=== PATIENT | female | born 1995 | race African-American/Black ===

== ENCOUNTER 2018-01-24 00:41 | Emergency (ER) | payer OTHER, SELFPAY ==
[2018-01-24 01:36] LABS: #Eosinphils 0.3 thou/uL (0.0-0.7); #Monocytes 0.6 thou/uL (0.11-0.59); #Neutrophils 10.1 thou/uL (1.40-6.50); %Basophils 0.1 % (0.0-1.0); %Eosinophils 2.5 % (0.0-10.0); %Lymphocytes 15.3 % (21.0-51.0); %Monocytes 4.6 % (0.0-10.0); %Neutrophils 77.4 % (42.0-75.0); Hemoglobin 13.9 g/dL (12.0-16.0); Mean Corpuscular Hemoglobin 29.9 pg (27.0-31.0); Mean Corpuscular Volume 90.6 fl (81.0-99.0); Mean Platelet Volume 9.2 fL (7.4-10.4); Platelet Count 273 thou/uL (130-400); Red Blood Cell (RBC) Count 4.65 mill/uL (4.20-5.40)
[2018-01-24 01:55] LABS: ALT (SGPT) 28 U/L (8-55); AST (SGOT) 19 U/L (5-34); Albumin 4.5 g/dL (3.5-5.0); Alkaline Phosphatase 74 U/L (40-150); Anion Gap 11 mmol/L (10-20); BUN (Urea Nitrogen) 12 mg/dL (7.0-18.7); Bilirubin, Total 0.2 mg/dL (0.2-1.2); Calc. Creatinine Clearance 0 mL/min (70-130); Calcium 9.4 mg/dL (7.8-10.44); Carbon Dioxide 24 mmol/L (22-29); Chloride 104 mmol/L (98-107); Estimated GFR-MDRD Greater than 90; Globulin 3.2 g/dL (2.4-3.5); Glucose 137 mg/dL (70-105); Potassium 3.6 mmol/L (3.5-5.1); Protein, Total 7.7 g/dL (6.0-8.3); Sodium 135 mmol/L (136-145)
[2018-01-24 01:58] LABS: CKMB 1.3 ng/mL (0-6.6); Troponin I Less than 0.010 ng/mL (< 0.028)
[2018-01-24] MEDS ORDERED: Lidocaine Viscous Sol 2% 15 ml UD Cup ONE (02:01)
[2018-01-24] MEDS ORDERED: Mag-Al 1200 mg/1200 mg/30 ML UDCUP ONE (02:01)
[2018-01-24 02:03] LABS: BHCG - Serum Negative (NEGATIVE); Pregs Control Background? CLEAR/WHITE (CLR/WHITE); Pregs Control Bar Appear? YES (CONTROL BAR)
[2018-01-24] MEDS ORDERED: Ondansetron ODT 8 MG TAB ONE (02:14)
--- NOTE | 2018-01-24 07:48 | RAD ---
AP VIEW CHEST: HISTORY: Upper chest pain. FINDINGS: AP view chest is obtained on 01/24/18. AP view chest demonstrates the lungs to be well aerated. No evidence of active intrathoracic disease is seen. No evidence of effusions, pneumonia, or pneumothorax seen. IMPRESSION: Unremarkable AP view chest. POS: [facility]
--- NOTE | 2018-01-28 15:44 | EKG ---
Test Reason : Blood Pressure : / mmHG Vent. Rate : 064 BPM Atrial Rate : 064 BPM P-R Int : 162 ms QRS Dur : 092 ms QT Int : 438 ms P-R-T Axes : 047 051 034 degrees QTc Int : 451 ms Normal sinus rhythm with sinus arrhythmia Possible Left atrial enlargement Borderline ECG Confirmed by GINGER BARTLETT D.O. ([id number]), art editor OSMAN GROSSMAN ([id number]) on 01/28/2018 3:44:04 PM Referred By: Confirmed By:GINGER BARTLETT D.O.
== END 2018-01-24 03:57 | disposition home or self-care (01) ==
LOC: ERS 00:41
DX: R10.13 Epigastric pain (principal)
CPT/HCPCS: 71045; 80053; 82553; 84484; 84703; 85025; 93005

== ENCOUNTER 2019-05-16 18:48 | Day surgery (SDC) | payer OTHER ==
[2019-05-16 19:49] VITALS: BMI 36.6
[2019-05-17] MEDS ORDERED: Azithromycin 250 MG TAB PO SCH (09:00)
== END 2019-05-16 22:04 | disposition home or self-care (01) ==
LOC: L&D/OP 18:48
PROVIDERS: ATTEND Student in an Organized Health Care Education/Training Program
DX: O99.89 Other specified diseases and conditions complicating pregnancy, childbirth and the puerperium (principal); R25.2 Cramp and spasm; R10.9 Unspecified abdominal pain
CPT/HCPCS: 99281

== ENCOUNTER 2019-06-25 00:08 | Inpatient (IN) | payer OTHER ==
[2019-06-25] MEDS ORDERED: Ondansetron PF 4 MG/2 ML Vial IVP PRN ×3 (00:39→10:49)
[2019-06-25] MEDS ORDERED: hydrALAZINE 20 MG/ML VIAL SLOW IVP PRN ×2 (00:39→10:49)
[2019-06-25] MEDS ORDERED: Promethazine HCl 25 MG/ML VIAL IM PRN ×3 (00:39→10:49)
[2019-06-25 00:57] VITALS: BMI 37.8
[2019-06-25 00:57] LABS: Amnisure Test RUPTURE DETECTED (No Rupture)
[2019-06-25 00:58] LABS: Amnisure Internal Control QC ACCEPTABLE (ACCEPTABLE)
[2019-06-25 00:59] LABS: Hemoglobin 11.8 g/dL (12.0-16.0); Mean Corpuscular Hemoglobin 30.1 pg (27.0-31.0); Mean Corpuscular Volume 85.9 fL (78.0-98.0); Mean Platelet Volume 10.7 fL (7.4-10.4); Platelet Count 176 thou/uL (130-400); Red Blood Cell (RBC) Count 3.92 mill/uL (4.20-5.40); White Blood Cell (WBC) Count 11.9 thou/uL (4.8-10.8)
[2019-06-25] MEDS: Lactated Ringer's 1,000 ML IV SCH ×2 (01:02→04:12)
--- NOTE | 2019-06-25 01:16 | PDOC.LDHP ---
Labor and Delivery H&P Chief complaint: loss of fluid HPI: Mrs. Raphael is a 23 y/o female who presents to the clinic after her "water broke". The patient states that at approximately 11:00 PM on 06/24/19 she felt a gush of clear fluid that did not contain any mucous or blood. She states that her last episode of vaginal intercourse was approximately 6 months ago, and she does not endorse any urinary symptoms at this time. She states that her has been uncomplicated thus far, except for a positive GBS screen on 06/21/19. Her is dated at 39.5W by 33.1W US, and she states that she sees Dr. Abdulkadir Brantley at [facility]. A growth scan performed on 06/21/19 revealed a Hadlock Score of 51.5%, with an estimated weight of 3478 g, an anterior fundal placenta, and a vertex presentation. Per chart review, Mrs. Raphael's has been complicated by 1 episode of Chlamydial/Trichomonal infection that was treated with Azithromycin 500 mg PO BID x1 and confirmed with a test of cure. As of 06/21/19, Mrs. Raphael is negative for HIV, RPR, Gonorrhea, and Chlamydia. Mrs. Raphael states that her previous was uncomplicated, and that her baby was born at 40W without complications. She denies any chest pain, SOB, changes in vision, headaches, abnormal swelling in her extremities, abnormal sensation in her extremities and abnormal vaginal discharge. Current gestational age (weeks): 39 (39.5) Due date: 06/27/19 Dating criteria: other (US performed at 33.1W) Grav: 2 Para: 1 (1001) OB History Details: Current : Growth Scan on 06/21/19 revealed Hadlock 51.5%, estimate weight of 3478 g, anterior fundal placenta, and vertex presentation. GBS+, HIV-, RPR-, GOnorrhea-, Chlamydia-. The patient admits to a previous episode of Chlamydia and Trichomonas earlier in her , both of which were treated by Azithromycin 500 mg PO BID x1 and confirmed -via test of cure. Previous : Born at 40W via following amniotomy. No complaints or complications, per the patient. Current complications: other (Chlamydia / Trichomonas Infection, treated with Azithromycin and confirmed via test of cure.) Abnormal US findings: No Past Medical History: Obesity Current medications: none Previous surgical history: none Allergies/Adverse Reactions: Allergies Allergy/AdvReac Type Severity Reaction Status Date / Time No Known Allergies Allergy Verified 06/25/19 00:55 Social history: none - Physical Exam Vital signs reviewed and normal: yes General: NAD, resting, breathing through contractions Heart: other (2/6 systolic murmur heard throughout the precordium, which the patient states has been present since childhood.) Lungs: nonlabored breathing Abdomen: NTTP Extremeties: trace edema FHT: category 1 [place] contractions every: 3-4 minutes - Vaginal Exam cm dilated: 1 Effacement: 75% Station: -2 - OB Labs Blood type: O RH: positive Antibody Screen: unknown HIV: negative RPR: negative HEPSAg: unknown 1 hour GCT: negative GBS: positive Urine drug screen: negative - Assessment L&D Assessment: term rupture in membranes 23 y/o female at 39.5W confirmed via 33.1W US. 1. TIUP -Begin GBS Prophylaxis -Cervical Checks Q2H -Epidural desired -Consider Pitocin Augmentation if needed 2. GBS+ -Initiate GBS Antibiotic Prophylaxis of Penicillin G 5M U + 2.5M U, administered over 4 hours -Monitor for maternal fever Dispo: Admit to L&D, initiate GBS antibiotic prophylaxis, contact Anesthesia when appropriate, cervical checks Q2H. - Plan Plan: admit to L&D, GBS antibiotic prophylaxis Addendum - Attending - Attending Attestation Date/Time: 06/25/19 0733 I personally evaluated the patient and discussed the management with Dr. Abdullahi I agree with the History, Examination, Assessment and Plan documented above with any addition or exceptions noted below. 23 yo at 39w5d dated by 32 w US presenting for term PROM at 2300 on 06/24 1. GBS Positive-start prophylaxis now 2. Chlamydia x 2, treated with negative FOREIGN in 3rd trimester 3. Borderline BP-in office and here in hospital. Monitor closely. Will send labs if BP persistently >140/90 4. Obesity-BMI is 40 based on measured height of 60 inches in our office. 5. Cat I FHT. Cephalic presentation confirmed by sutures and bedside US. Start pitocin for labor augmentation. Anticipate
[2019-06-25 01:40] LABS: HBSAg Index 0.31 S/CO (0-0.99); Hep B Surf Ag Non-Reactive S/CO (NonReactive); Syphilis Antibody Nonreactive (Nonreactive); Syphilis Antibody Index 0.03 S/CO (<1.00 Non-Reactive)
[2019-06-25] MEDS ORDERED: Lidocaine 1% (PF) 30 ML VIAL SC PRN (01:42)
[2019-06-25] MEDS ORDERED: NS / Oxytocin 40 units/1000ml 1,000 ML IV PRN (01:42)
[2019-06-25] MEDS ORDERED: Penicillin G Potassium 5 MILL.UNITS in Sodium Chloride 0.9% 100 ML IVPB SCH (01:45)
[2019-06-25] MEDS ORDERED: Fentanyl 4 mcg/Bup 0.1% Cadd 100 ML ONE (02:26)
[2019-06-25] MEDS ORDERED: NS w/ Oxytocin 10 units 500 ML IV SCH (02:30)
[2019-06-25] MEDS ORDERED: diphenhydrAMINE 50 MG/ML VIAL IVP PRN (03:53)
[2019-06-25] MEDS ORDERED: ePHEDrine/0.9% NaCl/PF SYRINGE 50 mg/10 ml SLOW IVP PRN (03:53)
[2019-06-25] MEDS ORDERED: Naloxone HCl 0.4 mg/ml Vial IVP PRN ×2 (03:53)
[2019-06-25] MEDS ORDERED: Lactated Ringer's 500 ML IV PRN (03:53)
[2019-06-25] MEDS ORDERED: Fentanyl 4 mcg/Bupivacaine 0.1% Cassette 100 ML EPIDURAL SCH (04:00)
[2019-06-25] MEDS ORDERED: Communication Order-Pharmacy FS SCH (04:00)
--- NOTE | 2019-06-25 06:31 | PDOC.LDPN ---
Labor & Delivery Progress Note - Subjective Subjective: comfortable, loss of fluid (SROM @ 2300 on 06/24. ), no concerns - Objective Vital signs reviewed and normal: yes General: NAD, resting Uterine fundus: non tender SVE: By Nurse Summer Dilation: 3 Effacement: 50% Station: 0 FHT: category 1 (FHT's 130's, no decles, moderate variability. Accels present. ) , variability present [place] contractions every: 4-5 minutes Other exam findings: Epidural in place for pain management. - Assessment (1) Intrauterine Code(s): Z33.1 - STATE, INCIDENTAL Current Visit: No Status: Acute Plan: continue plan of care -: 23 y/o female at 39.5W confirmed via 33.1W US. 1. TIUP -Begin GBS Prophylaxis @0600 06/25 -Cervical Checks Q2-4H -Epidural for pain management -Consider Pitocin Augmentation if needed -Check @ 0620: 3/50/0 -Cat 1 strip, FHT 130's, accels present, no decels, moderate variability. -Yanna every 4-5 minutes. 2. GBS+ -Initiate GBS Antibiotic Prophylaxis of Penicillin G 5M U + 2.5M U, administered over 4 hours -Monitor for maternal fever Dispo: Continue L&D care, initiate GBS antibiotic prophylaxis, cervical checks Q2-4H. Addendum - Attending - Attending Attestation Date/Time: 06/25/19 5853 I personally evaluated the patient and discussed the management with Dr. Nelson I agree with the History, Examination, Assessment and Plan documented above with any addition or exceptions noted below. Pt checked and found to be 6/90/0. Difficult to trace FHT due to maternal body habitus so FSE placed. Cat I FHT Anticipate vaginal delivery
[2019-06-25] MEDS: Penicillin G 2.5 MILL.units 2.5 MILL.UNITS in Premix Bag 1 BAG IVPB SCH ×2 (06:43→11:06)
--- NOTE | 2019-06-25 08:11 | PDOC.EVN ---
Event Note - Event Note Event Note: /+1 Cat 1, baseline 130, good variability, no decels, accels present expectant management
[2019-06-25] MEDS ORDERED: Prenatal Vitamin 1 TAB PO SCH (09:00)
--- NOTE | 2019-06-25 09:31 | PDOC.OPDEL ---
OB Operative/Delivery Note - Additional Findings/Plan Compilations/Other Findings: Vaginal Delivery Procedure note Delivering Physician: Karon Ruiz Attending: Dr. Anderson Procedure: Spontaneous Vaginal Delivery Anesthesia: epidural QBL: 70 ml Pre-op Diagnosis: 1. Term intrauterine in labor 2. Late to care 3. GBS positive Post-op Diagnosis: 1. Term intrauterine , delivered 2. Late to care 3. GBS positive, adequate PCN PPX. Indications: A 23 y/o female presents in active labor Delivery Note: This is 23yo F @ 39.5wks who delivered a viable F infant at 0917 on 06/25/19. Patient presented to L&D about three hours after SROM at 2300 on 06/24/2019, she was not paige at the time and was started on Pitocin. A vigorous female was delivered over an intact perineum in the TALA position. Anterior Shoulder and then remainder of the body delivered. No nuchal cord. The head was held down and mouth and nares were bulb suctioned. Cord clamped after pulsation stopped and cut and cord blood collected. Placenta delivered intact in the Roberts presentation with a 3 vessel cord noted. Fundal massage was performed and the fundus was firm. The cervix and vagina were inspected and found to be free of lacerations. went to nursery in good condition for routine care. Apgars were 8/9 at 1 & 5 minutes, respectively. Patient tolerated delivery well and went to after routine recovery/care. Addendum - Attending - Attending Attestation Date/Time: 06/25/19 1319 I wqas present, assisted and supervised the of a viable female to a 23 yo @39.5 weeks. Apgars 8/9. Placenta delivered spintaneously and inatct. No lacerations. QBL = 70 mL. Residents- Omar/Kelsey Brantley
--- NOTE | 2019-06-25 09:31 | PDOC.OPDEL ---
OB Operative/Delivery Note Delivery Dr/Surgeon: Dr. Nelson, Dr. Brantley, Dr. Anderson Pre-Delivery Diagnosis: active labor, ruptured membrane Procedure/Post Delivery Dx: spontaneous vaginal delivery Weeks gestation: 39 (39.5) Anesthesia: epidural - Findings A Sex: female - Additional Findings/Plan Placenta delivered: spontaneous Repaired Obstetrical Laceration: none
[2019-06-25] MEDS ORDERED: Bisacodyl 10 MG SUPP PR PRN (10:49)
[2019-06-25] MEDS ORDERED: Benzocaine-Menthol 82.5 ML CAN TOP PRN (10:49)
[2019-06-25] MEDS ORDERED: NS / Oxytocin 40 units/1000ml 1,000 ML IV SCH (10:49)
[2019-06-25] MEDS ORDERED: Acetaminophen 325 MG TAB PO SCH (10:49)
[2019-06-25] MEDS ORDERED: Milk Of Magnesia 30 ML UDCUP PO PRN (10:49)
[2019-06-25] MEDS ORDERED: Lanolin Ointment 7 GM TUBE TOP PRN (10:49)
[2019-06-25] MEDS ORDERED: Ibuprofen 800 MG TAB PO SCH (12:00)
[2019-06-25] MEDS ORDERED: Bupivacaine/Epinephrine 0.25% 30 ML VIAL ONE (15:00)
[2019-06-25] MEDS ORDERED: Bupivacaine 0.25% HCL 30 ML VIAL ONE (15:00)
[2019-06-25] MEDS: Acetaminophen 325 MG TAB PO PRN ×2 (17:09→21:41)
[2019-06-25] MEDS: Ferrous Sulfate 325 MG TAB PO SCH (17:11)
[2019-06-25] MEDS: Ibuprofen 800 MG TAB PO SCH (21:41)
[2019-06-25] MEDS: Docusate Calcium (SURFAK) 240 MG CAP PO SCH (21:41)
[2019-06-26] MEDS: Ibuprofen 800 MG TAB PO SCH ×4 (02:25→21:52)
[2019-06-26 05:51] LABS: #Eosinphils 0.2 thou/uL (0.0-0.7); #Lymphocytes 1.9 thou/uL (1.20-3.40); #Monocytes 0.8 thou/uL (0.11-0.59); #Neutrophils 8.3 thou/uL (1.40-6.50); %Basophils 0.1 % (0.0-1.0); %Lymphocytes 17.2 % (21.0-51.0); %Neutrophils 73.8 % (42.0-75.0); Hemoglobin 11.7 g/dL (12.0-16.0); Mean Corpuscular HGB CONC 33.3 g/dL (32.0-36.0); Mean Corpuscular Hemoglobin 29.5 pg (27.0-31.0); Mean Corpuscular Volume 88.6 fL (78.0-98.0); Mean Platelet Volume 11.3 fL (7.4-10.4); Platelet Count 157 thou/uL (130-400); RBC Distribution Width 12.3 % (11.5-14.5); Red Blood Cell (RBC) Count 3.96 mill/uL (4.20-5.40); White Blood Cell (WBC) Count 11.2 thou/uL (4.8-10.8)
[2019-06-26] MEDS ORDERED: Simethicone Chewable 80 MG TAB PO PRN (06:07)
[2019-06-26] MEDS: Acetaminophen 325 MG TAB PO PRN ×2 (06:31→10:26)
--- NOTE | 2019-06-26 07:56 | PDOC.PP ---
Post Progress Note Post Day #: 1 Subjective: Feels well overall. Ambulating. Less bleeding than menses. Gas pain. Passed gas last night, not today. Advised to walk as much as possible. Tolerating PO w/o difficulty. PO intake tolerated: yes Flatus: yes Ambulation: yes Vital Signs (12 hours) Temp Pulse Resp BP BP Pulse Ox 06/26/19 07:49 98.6 F 86 20 136/63 98 06/26/19 04:30 98.2 F 75 16 128/75 06/25/19 23:50 98.3 F 70 16 128/68 06/25/19 20:20 98.4 F 73 20 124/63 99 Weight Weight 93.894 kg - Physical Examination General: NAD Cardiovascular: RRR Deviation from normal: 2/6 murmur, known Respiratory: clear to auscultation bilaterally, non-labored breathing Abdominal: + bowel sounds, lochia, no distention, appropriately TTP Fundus firm & at: 1cm below umbilicus Extremities: negative homans (B) Neurological: no gross focal deficits Result Diagrams: 06/26/19 05:10 Additional Labs: Post Labs Blood Type O POSITIVE 06/25/19 00:51 Hep Bs Antigen Non-Reactive S/CO (NonReactive) 06/25/19 00:51 (1) care and examination Code(s): Z39.2 - ENCOUNTER FOR ROUTINE FOLLOW-UP Status: Acute - Assessment/Plan PP day 1 - hgb 11.8-> 11.7 - added simethicone - ambulating, tolerating PO, passing gas yesterday - possibly home today, if not today then tomorrow Addendum - Attending - Attending Attestation Date/Time: 06/26/19 1010 I personally evaluated the patient and discussed the management with Dr. Kelsey Brantley I agree with the History, Examination, Assessment and Plan documented above with any addition or exceptions noted below- Patent without complaints. Ambulating. Minimal lochia. Afebrile VSS A/P: 1) PPD#1 s/p - continue routine care. Anticipate d/c home tomorrow.
[2019-06-26] MEDS ORDERED: Simethicone Chewable 80 MG TAB PO SCH ×2 (08:00→22:00)
[2019-06-26] MEDS ORDERED: Adacel (T-DAP) 0.5 ML SYRINGE IM ONE (09:00)
[2019-06-26] MEDS: Docusate Calcium (SURFAK) 240 MG CAP PO SCH ×2 (10:26→21:52)
[2019-06-26] MEDS: Ferrous Sulfate 325 MG TAB PO SCH ×2 (10:30→17:43)
[2019-06-26] MEDS ORDERED: Polyethylene Glycol 3350 17 GM Packet PO PRN (17:27)
[2019-06-27] MEDS: Ibuprofen 800 MG TAB PO SCH ×2 (06:02→14:50)
--- NOTE | 2019-06-27 07:35 | PDOC.PP ---
Post Progress Note Post Day #: 2 Subjective: Patient complains of worse cramping yesterday. Still tolerating PO. No N/V. Ambulating well. Changed pad x3 yesterday, states this is more than a normal period. PO intake tolerated: yes Flatus: yes Ambulation: yes Vital Signs (12 hours) Temp Pulse Resp BP BP Pulse Ox 06/27/19 00:10 97.8 F 79 18 125/55 L 06/26/19 19:57 98.3 F 73 16 128/69 99 Weight Weight 93.894 kg - Physical Examination General: NAD Cardiovascular: RRR Deviation from normal: murmur present, known Respiratory: clear to auscultation bilaterally Abdominal: + bowel sounds, lochia, no distention Deviation from normal: tender to palpation of uterus Fundus firm & at: 1 cm below umbilicus Neurological: no gross focal deficits Psychiatric: A&Ox3, normal affect Result Diagrams: 06/26/19 05:10 Additional Labs: Post Labs Blood Type O POSITIVE 06/25/19 00:51 Hep Bs Antigen Non-Reactive S/CO (NonReactive) 06/25/19 00:51 (1) care and examination Code(s): Z39.2 - ENCOUNTER FOR ROUTINE FOLLOW-UP Status: Acute - Assessment/Plan PP day 2 - hgb 11.8-> 11.7 - simethicone - ambulating, tolerating PO, passing gas yesterday - home today, f/u in clinc - known systolic murmur, has seen cardiology Addendum - Attending - Attending Attestation Date/Time: 06/27/19 0941 I personally evaluated the patient and discussed the management with Dr. Kelsey Brantley I agree with the History, Examination, Assessment and Plan documented above with any addition or exceptions noted below - Patient without complaints. afebrile VSS. A?P: 1) PPD#2 s/p - D/c home today. F/U in 6 weeks. .
[2019-06-27 07:56] VITALS: BP 126/76; TEMP 98.3
[2019-06-27] MEDS: Ferrous Sulfate 325 MG TAB PO SCH (08:03)
[2019-06-27] MEDS: Docusate Calcium (SURFAK) 240 MG CAP PO SCH (08:12)
== END 2019-06-27 17:40 | disposition home or self-care (01) | DRG 807 ==
LOC: L&D/OP 00:08 → L&D 00:48 → 3SW 14:57
PROVIDERS: ADMIT Family Medicine; ATTEND Family Medicine
PROC: 10E0XZZ Delivery of Products of Conception, External Approach (ICD-10-PCS; principal; 2019-06-25)
DX: O42.92 Full-term premature rupture of membranes, unspecified as to length of time between rupture and onset of labor (principal); Z37.0 Single live birth; Z3A.39 39 weeks gestation of pregnancy; O99.214 Obesity complicating childbirth; E66.9 Obesity, unspecified; O99.824 Streptococcus B carrier state complicating childbirth
CPT/HCPCS: 36415; 51702; 84112; 85025; 85027; 86780; 86850; 86900; 86901; 87340; 90715; 99285; J2001; J2540; J2590; J3490; S0020

== ENCOUNTER 2020-06-16 21:52 | Emergency (ER) | payer OTHER ==
[2020-06-16 22:43] LABS: Bilirubin Negative (Negative); Blood, Urine Negative (Negative); Clarity Turbid (Clear); Glucose, Urine (Dipstick) Normal (Negative); Ketone, Urine Negative (Negative); Leukocyte Negative Leu/uL (Negative); Nitrite Negative (Negative); Protein, Urine (Dipstick) 10 mg/dL (Neg-Trace); Specific Gravity, Urine 1.033 (1.002-1.036); Urobilinogen 3 mg/dL (Less than 2)
[2020-06-16 22:46] LABS: Pregnancy Test - Urine (BHCG) Negative (Negative); Pregu Control Background? CLEAR/WHITE (CLR/WHITE); Pregu Control Bar Appear? YES (CONTROL BAR); Specific Gravity 1.033 (1.002-1.036)
== END 2020-06-16 23:11 | disposition home or self-care (01) ==
LOC: ERS 21:52
DX: M54.5 Low back pain (principal)
CPT/HCPCS: 81003; 81025; 99283